=== PATIENT | female | born 1985 | race Caucasian/White ===

== ENCOUNTER 2023-11-01 18:10 | Emergency (ER) | payer SELFPAY ==
[~2023-11-01] VITALS: Ht 152.4 cm; Wt 61.0 kg
[2023-11-01 18:18] VITALS: BP 136/87; TEMP 98.2
[2023-11-01 19:54] LABS: BASOPHILS % 0.4 % (0.0-2.0); HEMATOCRIT. 32.9 % (36.0-48.0); HEMOGLOBIN. 10.3 g/dL (12.0-16.0); LYMPHOCYTES % 34.3 % (20.0-50.0); MEAN CORPUSCULAR HEMOGLOBIN 26.9 pg (28.0-32.0); MEAN CORPUSCULAR HGB CONC 31.3 g/dL (31.0-37.0); MEAN CORPUSCULAR VOLUME 86.2 fL (81.0-99.0); MEAN PLATELET VOLUME 6.4 fl (7.4-10.4); MONOCYTES % 7.5 % (2.0-8.0); NEUTROPHILS % 55.8 % (40.0-76.0); PLATELET 499 x1000/uL (130-400); RED BLOOD CELL COUNT 3.81 mill/uL (4.2-5.4); RED CELL DISTRIBUTION WIDTH 18.6 % (11.6-14.6); WHITE BLOOD COUNT 6.9 x1000/uL (4.5-11.0)
[2023-11-01 20:07] LABS: ALANINE AMINOTRANSFERASE 27 IU/L (10-49); ALBUMIN 4.5 g/dL (3.2-4.8); ASPARTATE AMINOTRANSFERASE 18 IU/L (<34); BILIRUBIN TOTAL 0.2 mg/dL (0.1-1.0)
[2023-11-01 20:13] LABS: BILIRUBIN DIRECT < 0.1 mg/dL (<=3.0)
[2023-11-01] MEDS ORDERED: DEXAMETHASONE 10 MG/ML VIAL IM ONE (20:15)
[2023-11-01 20:18] VITALS: PULSE 82; RESP 16; O2SAT 97
[2023-11-01] MEDS: IPRATROPIUM/ALBUTEROL 0.5-3(2.5)MG/3ML NEB HHN ONE (20:18)
== END 2023-11-01 21:25 | disposition left against medical advice (07) ==
LOC: ER 18:10
DX: R10.9 Unspecified abdominal pain (principal); R11.10 Vomiting, unspecified; I82.622 Acute embolism and thrombosis of deep veins of left upper extremity; Z90.49 Acquired absence of other specified parts of digestive tract; Z88.6 Allergy status to analgesic agent; Z88.8 Allergy status to other drugs, medicaments and biological substances; Z85.43 Personal history of malignant neoplasm of ovary
CPT/HCPCS: 80076; 85025; 36415; 94640; 99283; Z7610 ×2; J1100